=== PATIENT | male | born 1995 | race African-American/Black ===

== ENCOUNTER 2019-09-04 08:44 | Emergency (ER) | payer OTHER ==
[~2019-09-04] VITALS: Ht 157.5 cm; Wt 88.5 kg
[2019-09-04] MEDS ORDERED: VENTOLIN HFA 1818 GM INH (10:07)
[2019-09-04 10:29] VITALS: BP 120/65
== END 2019-09-04 10:30 | disposition home or self-care (01) ==
LOC: ER 08:44
DX: J98.9 Respiratory disorder, unspecified (principal); J45.909 Unspecified asthma, uncomplicated

== ENCOUNTER 2020-05-08 19:19 | Emergency (ER) | payer OTHER ==
[~2020-05-08] VITALS: Ht 157.5 cm; Wt 80.7 kg
[~2020-05-08 19:19] MED LIST: VENTOLIN HFA 1818 GM INH
[2020-05-08 22:27] VITALS: BP 145/60
== END 2020-05-08 22:27 | disposition home or self-care (01) ==
LOC: ER 19:19
DX: R05 Cough (principal); J45.909 Unspecified asthma, uncomplicated; Z79.899 Other long term (current) drug therapy; Z20.828 Contact with and (suspected) exposure to other viral communicable diseases